=== PATIENT | female | born 1990 | race Caucasian/White ===

== ENCOUNTER → 2018-04-20 | Outpatient (CLI) | payer OTHER ==
[~2018-04-20] MED LIST: CEPH500 PO; HYDACE5 PO; IBUP800 PO; MULVITMINE PO; SULTRIDS PO
[2018-04-20 10:43] LABS: Source, Urine Clean Catch
[2018-04-20 13:10] LABS: Bilirubin, Urine Neg (Neg); Blood, Urine 3+ (Neg); Glucose Qualitative, Urine Neg (Neg); Ketones, Urine Neg (Neg); Leukocyte Esterase, Urine 1+ (Neg); Nitrite, Urine Neg (Neg); Protein, Urine Neg (Neg); Urobilinogen, Urine NORM (Normal); pH, Urine 6.5 (5.0-8.0)
[2018-04-20 13:29] LABS: Appearance, Urine Clear (Clear); Color, Urine Yellow (P-Yellow)
[2018-04-20 13:31] LABS: Bacteria Mod /hpf; Squamous Epithelial Cells Rare /hpf (Few); White Blood Cells, Urine TNTC /hpf (0-5)
== END ==
LOC: LAB SRC 10:42 → LAB SHORT 10:42
PROVIDERS: Registered Nurse
DX: N39.0 Urinary tract infection, site not specified (principal)
CPT/HCPCS: 81001; 87086

== ENCOUNTER → 2019-04-11 | Outpatient (CLI) | payer OTHER | END | disposition home or self-care (01) | LOC: LAB SHORT 07:35 → LAB 07:35 | DX: N39.0 Urinary tract infection, site not specified (principal) | CPT/HCPCS: 87086 ==

== ENCOUNTER → 2021-08-15 | Outpatient (CLI) | payer OTHER | END | disposition home or self-care (01) | LOC: LAB 14:56 → LAB SHORT 14:56 | DX: L03.90 Cellulitis, unspecified (principal) | CPT/HCPCS: 87070; 87077; 87186; 87205 ==

== ENCOUNTER 2024-09-07 06:02 | Day surgery (SDC) | payer BC, OTHER ==
[2024-09-07] VITALS (16 sets, daily range): BP systolic 94–150; BP diastolic 41–82
[~2024-09-07] VITALS: Ht 172.7 cm; Wt 103.2 kg
[~2024-09-07 06:02] MED LIST changes: +ALBU90OI; +B-12500 MC2 PO; +CATAPRES0.1 MG PO; +DYANAVEL PO; +FAMO20 PO; +HYDHCL25; +LEVONOR-ETH ES1 EAC5 PO; +LORA10ER PO; +METF500 PO; +METO25ER PO; +OMEP20ER PO; +PSEUDOEPHEDRIN PO; +VITAMIN D5000 UNIT PO
[2024-09-07] MEDS ORDERED: CeFAZolin Sodium 2,000 MG in NS 100 ML IV SCH (06:20)
[2024-09-07] MEDS ORDERED: Lactated Ringer's 1,000 ML IV SCH ×2 (06:20→09:30)
[2024-09-07] MEDS ORDERED: CeFAZolin Sodium 2,000 MG VIAL ONE (06:51)
--- NOTE | 2024-09-07 06:59 | NUR ---
Ambulatory in Day Surgery History, Chart, Medications and Allergies reviewed before start of procedure. Pre-Op teaching done. Pt verbalizes understanding. Patient States Post-Procedure ride home has been arranged.
[2024-09-07] MEDS ORDERED: Sugammadex Sodium 200 MG/2ML SDV (100 MG/ML) ONE (07:02)
[2024-09-07] MEDS ORDERED: propofoL 20 ML IV ONE (07:02)
[2024-09-07] MEDS ORDERED: FentaNYL Citrate 50 MCG/ML 2 ML Injection ONE ×2 (07:02→09:28)
[2024-09-07] MEDS ORDERED: Rocuronium Bromide 10 MG/ML 5ML Injection IV ONE ×2 (07:04→08:15)
[2024-09-07] MEDS ORDERED: Lidocaine HCl 2% 20 ML MDV ONE (07:04)
[2024-09-07] MEDS ORDERED: Ketorolac Tromethamine 30mg Vial ONE (07:04)
[2024-09-07] MEDS ORDERED: Dexamethasone Sod Phos 10 MG/ML 1ML VIAL ONE (07:04)
[2024-09-07] MEDS ORDERED: Ondansetron HCl 2 MG / ML 2ML Vial ONE (07:04)
[2024-09-07] MEDS ORDERED: EpiNEPhrine 1 MG/1 ML 1ML Vial ONE (07:21)
[2024-09-07] MEDS ORDERED: Bupivacaine 0.5% HCl 5 MG/ML 30MLVIAL ONE (07:21)
[2024-09-07] MEDS ORDERED: Midazolam HCl 1MG / ML 2ML Vial ONE (07:26)
[2024-09-07] MEDS ORDERED: Midazolam HCl 1MG / ML 2ML Vial IV SCH (07:30)
[2024-09-07] MEDS ORDERED: Dexmedetomidine HCL 200 MCG / 2 ML ONE (09:14)
[2024-09-07] MEDS ORDERED: HYDROmorphone HCl/Pf 1MG SYR ONE (09:28)
[2024-09-07] MEDS ORDERED: Ibuprofen 400 MG Tab PO PRN (09:30)
[2024-09-07] MEDS ORDERED: Acetaminophen 325 MG TABLET PO PRN (09:30)
[2024-09-07] MEDS ORDERED: OxyCODONE HCL 5 MG TAB PO PRN (09:30)
[2024-09-07] MEDS ORDERED: Ondansetron HCl 2 MG / ML 2ML Vial IV PRN (09:30)
[2024-09-07] MEDS ORDERED: FLU VACC TS2024-25(6MOS UP)/PF 45 MCG/0.5 ML SYRINGE IM SCH (09:35)
[2024-09-07] MEDS ORDERED: Simethicone 80 MG Chew PO PRN (09:35)
[2024-09-07] MEDS ORDERED: DiphenhydrAMINE HCL 25 MG Cap PO PRN (09:35)
[2024-09-07] MEDS ORDERED: HYDROcodone 5-APAP 325 TAB PO PRN (09:35)
[2024-09-07] MEDS ORDERED: FentaNYL Citrate 50 MCG/ML 2 ML Injection IV PRN (09:35)
--- NOTE | 2024-09-07 10:16 | NUR ---
ARRIVAL PT ARRIVED TO UNIT FROM PACU AT APPROX 1000. PT SLIDE FROM GURNEY TO BED WITH SLIDE SHEET. TOLERATED WELL. DOUGLAS REMOVED AT PT REQUEST R/T DISCOMFORT. REPORTS SIGNIFICANT RELIEF IMMEDIATLY. ERI PAD IN PLACE WITH NO DRAINAGE ON IT. LAP SITES X2 CDI WITH WOUND GLUE. IV FLUIDS INFUSING ON ARRIVAL. PT PROVIDED WATER AND JELLO. ON ROOM AIR, DENIES SOB OR PAIN AT THIS TIME. CALL LIGHT PROVIDED, EDUCATED ON CALLING IF SHE NEEDS TO GET UP FOR ANYTHING.
[2024-09-07] MEDS ORDERED: Ketorolac Tromethamine 30mg Vial IV SCH (12:00)
[2024-09-07 13:02] LABS: Hematocrit 41.1 % (33.0-51.0); Hemoglobin 14.3 g/dL (11.5-16.0); Mean Corpuscular HGB 30.6 pg (26.0-34.0); Mean Corpuscular HGB Conc 34.8 g/dL (31.5-36.5); Mean Corpuscular Volume 88 fL (80-100); RDW Coefficient Variation 12.5 % (11.7-14.2); RDW Standard Deviation 40.4 fL (35.1-46.3); Red Blood Cell Count 4.67 M/mm3 (3.80-5.20); White Blood Cell Count 21.31 K/mm3 (4.00-11.30)
[2024-09-07 13:52] LABS: Mean Platelet Volume 10.4 fL (9.1-12.4); Platelet Count 53 K/mm3 (150-400)
--- NOTE | 2024-09-07 14:06 | NUR ---
DISCHARGE S/P LAVH. SCANT AMOUNT OF DRAINAGE ON PERIPAD. PT ABLE TO STAND AND VOID, RESIDUAL OF 65. TOLERATING PO AND REPORTS NO PAIN. CONTINUES TO MAINTAIN ON ROOM AIR. PT VERY MUCH WANTED TO DISCHARGE HOME. ALL INSTRUCTIONS GONE OVER WITH PATIENT. ALL QUESTIONS ANSWERED. SCRIPTS SENT WITH PATIENT. ESCORTED OUT VIA WHEELCHAIR.
[2024-09-07 14:22] LABS: BAND PERCENT MAN 1 % (0-8); BASOPHILS PERCENT MAN 0 % (0-2); EOSINOPHILS PERCENT MAN 0 % (0-6); LYMPHOCYTES ABSOLUTE MAN 1.27 K/mm3 (0.84-5.20); LYMPHOCYTES PERCENT MAN 6 % (21-46); MONOCYTES ABSOLUTE MAN 0.42 K/mm3 (0.16-1.47); MONOCYTES PERCENT MAN 2 % (4-13); SEG NEUTROPHILS PERCENT MAN 91 % (41-73); TOTAL CELLS COUNTED 100
== END 2024-09-07 13:43 | disposition home or self-care (01) ==
LOC: ORSCMMR 06:02 → ORD 07:30 → ORSCMMR 07:30 → ORD 08:00 → SURS 09:46 → ORSCMMR 13:43
PROVIDERS: Obstetrics & Gynecology
PROC: 0UT7FZZ Resection of Bilateral Fallopian Tubes, Via Natural or Artificial Opening With Percutaneous Endoscopic Assistance (ICD-10-PCS; principal; 2024-09-07 07:30)
PROC: 0UT9FZZ Resection of Uterus, Via Natural or Artificial Opening With Percutaneous Endoscopic Assistance (ICD-10-PCS; principal; 2024-09-07 07:30)
DX: R10.2 Pelvic and perineal pain (principal); N80.9 Endometriosis, unspecified; Z79.84 Long term (current) use of oral hypoglycemic drugs; F17.210 Nicotine dependence, cigarettes, uncomplicated; F41.8 Other specified anxiety disorders; F32.89 Other specified depressive episodes; Z79.899 Other long term (current) drug therapy; E66.9 Obesity, unspecified; Z68.34 Body mass index [BMI] 34.0-34.9, adult
CPT/HCPCS: 36415; 85025; 88307; J0171; J0690; J1100; J1171; J1885; J2250; J2405; J2704; J3010; J7120

== ENCOUNTER 2024-11-09 07:14 | Day surgery (SDC) | payer BC, OTHER ==
[~2024-11-09] VITALS: Ht 172.7 cm; Wt 104.0 kg
[2024-11-09] VITALS (11 sets, daily range): BP systolic 111–146; BP diastolic 58–95
[~2024-11-09 07:14] MED LIST changes: +Lactated Ringer's 1,000 ML IV SCH
[2024-11-09] MEDS ORDERED: CONEST1.25 PO (07:35)
[2024-11-09] MEDS ORDERED: propofoL 20 ML IV ONE (08:21)
[2024-11-09] MEDS ORDERED: Midazolam HCl 1MG / ML 2ML Vial ONE (08:23)
[2024-11-09] MEDS ORDERED: Benzocaine Oral Spray 0.5ML UD ONE (08:23)
--- NOTE | 2024-11-09 08:51 | NUR ---
11/09/24 0851 Amber Cote CONFIRMED AND REVIEWED H&P, MEDCICATIONS, ALLERGIES, MEDICAL HISTORY, RESPIRATORY HISTORY, VITAL SIGNS, 3-LEAD EKG, CONSENTS, AND PHYSICIAN ORDERS. PATIENT CONFIRMS NPO STATUS AND AGREES WITH SCHEDULED PROCEDURE. MONITOR INTACT WITH CONTINUOUS PULSE OXIMETRY, CAPNOGRAPHY, 3-LEAD EKG, INTERMITTENT BP. SUPPLEMENTAL O2 TO BE TITRATED THROUGHOUT PROCEDURE TO MAINTAIN O2 SATURATION ABOVE 90%. PATIENT DETERMINED TO BE ASA APPROPRIATE FOR PROPOFOL SEDATION PRIOR TO START OF PROCEDURE BY DR. MONTESINOS
--- NOTE | 2024-11-09 09:10 | NUR ---
Patient up to Ambulate independently. Gait steady. Discharge instructions reviewed with patient. Patient verbalizes understanding. Copy given to patient to take home. Patient States Post-Procedure ride home has been arranged. Discharged via wheelchair to private car for ride home. PT TOLERATING PO. REPORTS READY TO GO HOME.
== END 2024-11-09 09:10 | disposition home or self-care (01) ==
LOC: ORSCMMR 07:14 → ORD 08:30 → ORSCMMR 09:10
PROVIDERS: Internal Medicine Gastroenterology
PROC: 0DB98ZX Excision of Duodenum, Via Natural or Artificial Opening Endoscopic, Diagnostic (ICD-10-PCS; principal; 2024-11-09 08:30)
PROC: 0DB58ZX Excision of Esophagus, Via Natural or Artificial Opening Endoscopic, Diagnostic (ICD-10-PCS; principal; 2024-11-09 08:30)
PROC: 0DB48ZX Excision of Esophagogastric Junction, Via Natural or Artificial Opening Endoscopic, Diagnostic (ICD-10-PCS; principal; 2024-11-09 08:30)
PROC: 0DB68ZX Excision of Stomach, Via Natural or Artificial Opening Endoscopic, Diagnostic (ICD-10-PCS; principal; 2024-11-09 08:30)
DX: K21.00 Gastro-esophageal reflux disease with esophagitis, without bleeding (principal); E11.9 Type 2 diabetes mellitus without complications; F90.9 Attention-deficit hyperactivity disorder, unspecified type; F41.9 Anxiety disorder, unspecified; F17.210 Nicotine dependence, cigarettes, uncomplicated; Z79.899 Other long term (current) drug therapy
CPT/HCPCS: 82947; 88305; 88312; 88342; A9270; J2250; J2704; J7120